=== PATIENT | male | born 1955 | race Caucasian/White ===

== ENCOUNTER 2018-11-08 14:43 | Inpatient (IN) | payer OTHER ==
[~2018-11-08] VITALS: Ht 182.9 cm; Wt 65.3 kg
--- NOTE | 2018-11-08 14:12 | NUR ---
PATIENT ARRIVED TO FLOOR, ACCOMPANIED BY DAUGHTER RONALD AND FAMILY MEMBER JILLIAN. HE HAS HIS OWN WALKER. CAME TO ROOM WITH FAMILY AND STAFF, VS TAKEN. DENIES ANY PAIN AT THIS TIME. LUNGS CLEAR, NO EDEMA, AND NO OPEN WOUNDS. DR. VILLAFANA ASSESSING CLIENT. HE PERFORMED A MEMORY TEST ON HIM. STATED HE NEEDED TO STAY AND THEN CLIENT GOT UPSET AND STATED HE NEEDED TO WORK AND HE CAN'T AFFORD TO STAY HERE. HE SAID HE IS GOING TO WALK OUT AND WE NEED TO GET A COURT ORDER TO STAY HERE. DAUGHTER RONALD STATED SHE ISN'T TAKING HIM HOME. HE SAID BITTERLY THANK YOU AND FOR ALL I DID FOR YOU, HE WAS FIGHTING WITH DAUGHTER STATING HE DOES STILL WORK, SHE STATED YOU HAVEN'T WORKED FOR 5 YEARS. HE DIDN'T KNOW SHE LAST YEAR, AND HE DENIED GETTING A DIVORCE IN JULY 2018. FAMILY STATED HE HAD A STROKE OCTOBER 14 THAT AFFECTED HIS RT PERIPHERAL VISION. 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 CAN WALK WITHOUT A WALKER. HE RETIRED FROM A LAW FIRM. HE STATED HE TALKED TO INSURANCE THIS AM. THIS NURSE ASKED QUESTIONS FOR ADMISSION AND HE WAS REDIRECTED EASILY.
[2018-11-08 14:24] VITALS: BP 112/60
[2018-11-08 16:25] LABS: ABSOLUTE NEUTROPHILS 9.4 thou/uL (1.4-8.2); BASOPHILS 0.7 % (0.0-2.0); EOSINOPHILS 0.1 % (0.0-3.0); HEMATOCRIT 42.8 % (42.0-52.0); HEMOGLOBIN 14.8 gm/dL (14.0-18.0); LYMPHOCYTES 13.7 % (24.0-44.0); MCH 31.7 pg (26.0-34.0); MCHC 34.6 g/dL (28.0-37.0); MCV 91.5 fL (80.0-100.0); MONOCYTES 7.4 % (1.0-8.0); PLATELET COUNT 324 thou/uL (150-400); POLYS 78.1 % (36.0-66.0); RBC 4.67 mil/uL (4.50-6.00); RDW 13.7 % (10.5-14.5); WBC 12.1 thou/uL (4.0-11.0)
[2018-11-08 16:40] LABS: ALBUMIN 3.7 g/dL (3.4-5.0); CALCIUM 8.9 mg/dL (8.5-10.1); CREATININE 0.9 mg/dL (0.7-1.3); POTASSIUM 3.8 mmol/L (3.5-5.1); TOTAL BILIRUBIN 0.5 mg/dL (<0.1-1.0); TOTAL PROTEIN 7.3 g/dL (6.4-8.2)
[2018-11-08 17:05] LABS: URINE BILIRUBIN NEGATIVE (Negative); URINE BLOOD TRACE (Negative); URINE CLARITY CLEAR; URINE COLOR YELLOW; URINE GLUCOSE-RANDOM* 3+ (Negative); URINE KETONES NEGATIVE (Negative); URINE LEUKOCYTES NEGATIVE (Negative); URINE NITRITE NEGATIVE (Negative); URINE PROTEIN (DIPSTICK) NEGATIVE (Negative); URINE SPECIFIC GRAVITY < 1.005 (1.005-1.035); URINE UROBILINOGEN 0.2 E.U./dl (0.2-1.0)
--- NOTE | 2018-11-08 17:20 | NUR ---
CALLED [facility] TO SEE IF THIS NURSE COULD GET REPORT. LEFT MESSAGE AND THE CLINICAL REHABILITATION LIAISON STATED SHE WOULD HAVE SOMEONE CALL BACK. GAVE NUMBER TO THIS UNIT TO CALL NURSE.
--- NOTE | 2018-11-08 18:28 | NUR ---
TALKING TO DAUGHTER RONALD ON PHONE ABOUT SOCKS, HEARING, AND HIS PHONE. HE IS WANTING TO KNOW IF WE GET NOTIFIED OF HEARINGS AND ITS AN INDIVIDUAL RIGHT TO KNOW WHEN HE HAS A HEARING, AND HE WANTED TO KNOW IF HE CAN GET [facility] OF HIS OFFICE. HE HAS BEEN RETIRED FOR 5 YEARS SINCE FIRST STROKE, HE DOESN'T BELIEVE HE HAS RETIRED.
--- NOTE | 2018-11-08 18:46 | NUR ---
PATIENT IS GOING TO TAKE A SHOWER. HE ATE WELL FOR DINNER.
[2018-11-08 19:42] VITALS: BP 124/59
--- NOTE | 2018-11-08 21:56 | NUR ---
ASSUMED CARE OF THE PATIENT AT 2000 PM. ALERT ET CONFUSED AT TIMES. WALKS WITH A SLIGHTLY UNSTEADY GAIT, HAS A WALKER TO USE. HE CAME OUT OF HIS ROOM, WITH SWEAT ON HIS FACE. THE CONTRACT ADMINISTRATIVE ASSISTANT CHECKED HIS BLOOD SUGAR AND IT WAS 54. ORANGE JUICE AND SNACKS WERE GIVEN TO THE PATIENT, WHILE STAFF STAYED WITH THE PATIENT. HIS BLOOD SUGAR WAS CHECKED 1/2 HOUR LATER AND IT WAS 133. HELD HIS LANTUS INSULIN TONIGHT AFTER SPEAKING WITH THE BLUE LINE TRIMMER, WHO IS POLYMERIZATION KETTLE OPERATOR TONIGHT. ASSISTED THE PATIENT BACK TO BED AND PUT ON THE BED ALARM.
--- NOTE | 2018-11-08 22:38 | H ---
[facility] [place] [address] HISTORY AND PHYSICAL Name: AMANDA BLAND Room #: 528B-A ADM IN M.R.#: [id number] Admission: 11/08/18 Attend Phys: Chavo Krueger DO Discharge: Date of : 51 Report #: [id number] THIS REPORT FOR: //name// CC: Chavo Krueger [facility] DATE OF SERVICE: 11/08/2018 SOURCE OF INFORMATION: Review of records, interview with patient, interview with his daughter and Jed CANDELARIO, as well as conversation and discussion with his half-way physician who referred him to [facility], Senior Behavioral [facility] Unit, Dr. Shan Rodriguez. CHIEF COMPLAINT: Agitation. HISTORY OF PRESENT ILLNESS: This is a 63-year-old male, , who is directly admitted to [facility] Unit at [facility] from the [facility] in [place]. The patient has been at that facility since 10/29/2018. Prior to that, he was at [facility] after he sustained a stroke. The reason for admission at this time is agitation, irritability, wanting to leave the fci facility, alleged refusal of medication at that nursing facility and being behaviorally unstable for placement in an assisted living at this time. According to notes from [facility], when he was admitted there on 10/18/2018, he had a history of uncontrolled diabetes mellitus, hyperlipidemia, hypertension and cerebrovascular accident from 2013. He had initially presented to the ED on 10/14/2018 with complaints of altered mental status. He called his family with confusion. He also demonstrated right visual changes and some right side tingling. CT head was negative. Carotid Doppler without acute findings. CTA of head revealed occlusion of the proximal left posterior cerebral artery. MRI with restricted diffusion of the left hippocampus and to a lesser extent left mesial temporal lobe and posterolateral thalamus. Differential considerations including seizures and hypoxic ischemic etiologies, microangiopathic ischemic disease. EEG was negative. LDL was elevated. He has uncontrolled diabetes mellitus and still smokes. He was admitted, followed by Neurology, started on DAPT and worked with various therapies plus a swallow evaluation. The patient was evaluated by Physical Medicine and Rehabilitation and deemed appropriate for inpatient rehab. The patient was admitted to [facility] rehab on 10/18/2018. Hospitalist service consulted for medical management. PAST MEDICAL HISTORY: Includes diabetes mellitus type 2, hyperlipidemia, hypertension, and asthma. PSYCHIATRIC HISTORY: Includes anxiety. He also has medical history of stroke. [address] [address] HISTORY AND PHYSICAL Name: AMANDA BLAND Room #: 528B-A ADM IN M.R.#: [id number] Admission: 11/08/18 Attend Phys: Chavo Krueger DO Discharge: Date of : 51 Report #: [id number] PAST SURGICAL HISTORY: He does have history of right hip fracture, not requiring surgical intervention. FAMILY HISTORY: Cancer in his mother, diabetes in his father, heart disease in his father. SOCIAL HISTORY: He smokes every day half pack per day, never used smokeless tobacco, denies alcohol. ALLERGIES: EGG MEMBRANE. MEDICATIONS: Prior to hospital admission include aspirin 81 mg daily, atorvastatin 40 mg daily, clopidogrel 75 mg daily, docusate 100 mg by mouth two times a day as needed. He is on 20 units of Lantus, 2-12 units of lispro with meals, losartan 25 mg daily, Effexor 50 mg daily. Physical examination at [facility] on 10/18/2018 with grossly normal. 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 His A1c at that time was 13.2. Fasting blood glucose in the hospital was 83. His LDL was 168, which is well higher. He was on a diet consistent carbohydrate 75 grams per day. Of note, when he was at [facility] rehab, Psychology was consulted and seen by Nayely Dela Cruz. Her diagnoses included major depressive disorder, recurrent; mild generalized anxiety disorder, mood disorder due to medical condition, CVA. Psychology met with him to focus on elevated mood, improving his stress management, worked to facilitate emotional adjustment to stroke and lifestyle changes. Psychology will emphasize tobacco cessation strategies to maintain cessation. There is a note here by Dr. Person of the [facility] PMR doctor that due to his memory issues, he will not discharge him into assisted living and it looks like the patient went to SNF instead. I have not found documentation yet as to why and things such as this. Medications at his nursing facility [facility] include aspirin 81 mg daily, Lipitor 40 mg a day, Plavix 75 mg daily, docusate, he is getting heparin 5000 units every 8 hours, Lantus 18 units daily. I am going to defer the need for heparin to Dr. Shan Rodriguez who will be attending him here. Segment ramos, he was getting Effexor 50 mg 2 times a day, trazodone 50 mg at night, nicotine patch. Also, noted was modafinil 200 mg oral daily. There were some OT and PT notes left for me, which I will further review. Interview with his daughters today include the following information from Jed, his DPLUIS FERNANDO. Apparently, he got in 07/2018. This is his second . They got in their late 30s. They had 2 daughters together. There is an older stepdaughter from his previous marriage. They frequently fought. She describes her father is a borderline narcissist, frequent anger. Apparently, family history, his father was an alcoholic. [facility] [address] [place] [address] HISTORY AND PHYSICAL Name: AMANDA BLAND Room #: 528B-A ADM IN M.R.#: [id number] Admission: 11/08/18 Attend Phys: Chavo Krueger DO Discharge: Date of : 51 Report #: [id number]. His mother was addicted to sleeping pills. Psychiatric history, she related the daughter had marriage counseling, diagnosed as MDD. Initial stroke 4-1/2 to 5 years ago, he had left side with recurrence of the stroke with right-sided weakness. 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 On examination, the patient today, initially he was in fair spirits. Then, later when I told him he could not leave the hospital, he became belligerent, cursing at me, making sexually suggestive comments and doing some mild exit seeking. The patient is aware he has some cognitive deficits. He does not believe his DPOA can be enacted and lines are thinking such as that. I performed the [facility] mental status examination, he scored a 16 out of 30. Gross deficits were delayed memory as well as other areas of cognition. Physical examination deferred to hospitalist. Laboratories were not available at the time I see him. I did order a CBC, CMP, TSH, urinalysis. I do not have a reason to believe he is drugging. MENTAL STATUS EXAMINATION: This is a well-developed, ill-appearing male appearing older than stated age. Attention impaired as he could only do reverse digit span of three digits. Concentration limited. Speech is normal rate and tone. Thought process is linear and goal directed. Thought content focused on leaving the hospital, not following medical advice. Some psychomotor agitation or psychomotor retardation. Denied auditory or visual or tactile hallucinations. Denies suicidal or homicidal plan or intent. Denied hopelessness or helplessness. Denied homicidal intent or plan. Memory formally tested and grossly impaired as described. Insight limited. Judgment limited. Fund of knowledge below average at this point. 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 Further diagnoses, major and cognitive disorder due to cerebrovascular disease with behavioral disturbance based on records from [facility], interview with patient and his DPOA. Additionally, unspecified, rule out major depressive disorder, rule out substance-induced mood disorder due to the modafinil, and antidepressants, tobacco use disorder as well. PLAN: Evaluate, stabilize, obtain collateral and enacting DPOA. I have asked Dr. Rodriguez as well to write a kathia and enacting it. Estimated length of stay 7-14 days. I had a long conversation with the daughter, Jed, including the likelihood of the dementia diagnosis, need for placement, need for memory care. For factor such as this, the patient will be a full code for the time being. Risks attendent with medications such as antipsychtics and mood stabilizers were discussed with DPOA including , stroke and falls in dementia patients. Jed is ok with their use to stabilizer her father. [facility] [address] [address] HISTORY AND PHYSICAL Name: AMANDA BLAND Room #: 528B-A ADM IN M.R.#: [id number] Admission: 11/08/18 Attend Phys: Chavo Krueger DO Discharge: Date of : 51 Report #: [id number] Time spent on interview, review of records, coordination of care is at least 60 minutes. <ELECTRONICALLY SIGNED> By: Chavo Krueger DO 11/08/18 2238 1917 01 Chavo Krueger DO /nt
--- NOTE | 2018-11-09 04:37 | NUR ---
THE PT HAS BEEN SLEEPING MOST OF THE NIGHT. RESP., EVEN, AND UNLABORED.
--- NOTE | 2018-11-09 05:53 | NUR ---
THE PATIENT SLEPT 9.2 HOURS LAST NIGHT.
[2018-11-09 07:27] VITALS: BP 144/70
--- NOTE | 2018-11-09 08:19 | EKG ---
[address] [place] [address] ELECTROCARDIOGRAM REPORT Name: AMANDA BLAND Room #: 528B-A ADM IN M.R.#: [id number] Admission: 11/08/18 Attend Phys: Chavo Krueger DO Discharge: Date of : 51 Report #: [id number] THIS REPORT FOR: //name// [facility] Test Date: 2018-11-09 Test Time: 07:10:00 Pat Name: AMANDA BLAND Department: Room: 52B A Gender: M Assistant Controller: SALVADOR : 1955 Requested By: Chavo Krueger Order Number: [id number] MD: Man Centeno Measurements Intervals [place] Rate: 71 P: 72 [place]: 138 QRS: 48 QRSD: 128 T: 53 QT: 431 QTc: 469 Interpretive Statements Sinus rhythm Right bundle branch block No previous ECG available for comparison Electronically Signed On 11-09-2018 8:18:57 PRODUCTION ILLUSTRATOR by Man Centeno [email or web address] <ELECTRONICALLY SIGNED> By: Man Centeno MD, [facility] 11/09/18 0818 0710 0710 Man Centeno MD, [facility] /EPI
[2018-11-09 11:39] VITALS: BP 144/78
--- NOTE | 2018-11-09 15:43 | NUR ---
STAN left a voicemail for Torsten to return the call concerning scheduling a family meeting. STAN provided contact information.
--- NOTE | 2018-11-09 17:11 | NUR ---
PT. IN BED THIS MORNING, COOPERATIVE WITH STAFF WITH BLOOD SUGARS, MEDS, ECG. HAS BEEN ON THE UNIT MOST OF THE DAY INTERACTING WITH STAFF. HE IS NOT RETAINING INFORMATION AND WILL REPEAT THE SAME INFORMATION OVER AND OVER AGAIN. HIS BLOOD SUGARS HAVE BEEN 264 AT 0700, 272 AT 1100, 195 AT 1200, AND 127 AT 0600. HE RECEIVED LANTUS 10 U STAT THIS A.M. PER D.O. HIS OLDEST DAUGHTER VISITED (STEP DAUGHTER) THIS EVENING. HIS MOOD HAS BEEN NEUTRAL, AFFECT A BIT ANIMATED THIS AFTERNOON, FLAT THIS MORNING. DID ATTEND GROUPS TODAY AND PARTICIPATE.
[2018-11-09 19:36] VITALS: BP 136/67
--- NOTE | 2018-11-09 22:19 | NUR ---
PT REQUESTING DOCUMENTS ON WHY HE IS HERE AT HOSPITAL. BECAME QUITE AGITATED WHEN TOLD HE NEEDED TO SEE MD IN THE AM. CONSTANTLY HANGING AROUND NURSES STATION PESTERING ABOUT WANTING HIS CLOTHES AND WANTING TO GO HOME. CONTINUED TO ATTEMPT REDIRECTION AND DEFUSING SITUATION. WANTING ATTENTION AND VERY CONFUSED.
[2018-11-10 02:12] VITALS: BP 136/67
[2018-11-10 02:30] VITALS: BP 136/67
--- NOTE | 2018-11-10 03:54 | NUR ---
Showered and donned clean clothes, would not allow dirty clothes to be washed. Forgetful and repeated request for having his chart and talking to his Dr. Assured that he would see his Dr. in the a.m. Laid down at 23:30, has experienced regular breathing and eyes closed since retiring.
--- NOTE | 2018-11-10 06:04 | NUR ---
HS FSBS 211, 10 U of Glargine provided. Once asleep, slept soundly, respirations even and unlabored. Slept for 7hours. A.M. FSBS 170, 7 Units of Lispro given.
[2018-11-10 11:09] VITALS: BP 130/61
--- NOTE | 2018-11-10 11:59 | NUR ---
ASSUMED PATIENT CARE AT 0700 A.M. PATIENT STILL IN BED AT THAT TIME; HOWEVER, DID GET UP OUT OR BED AT 0715. STAYED IN DR UNTIL AFTER BREAKFAST. COMPLIANT WITH A.M. MEDICATIONS. PATIENT IS FORGETFUL; REPEATS SAME QUESTION A MINUTE AFTER QUESTION IS ANSWERED. BS 292 AT 11:30; RECEIVED SCHEDULED LISPRO 7 UNITS PRIOR TO NOON MEAL. GOOD APPETITE; AFFECT PLEASANT, BEHAVIOR COOPERATIVE; CALM MOOD TO DATE THIS SHIFT. SON AND DAUGHTER VISITED FOR THE AM VISITING HOURS. CONTINUE TO MONITOR.
[2018-11-10 19:23] VITALS: BP 138/72
--- NOTE | 2018-11-10 20:05 | NUR ---
[place] ACTIVATED FOR NEW CHEST PAIN. ON ARRIVAL, PT FLAILING AROUND AND WOULD NOT COOPERATE ENOUGHT TO OBTAIN AN ACCURATE EKG. MULTIPLE ATTEMPTS MADE TO ASSIST PT IN RELAXING BUT FAILED. MEDS DERMATOLOGY TECHNICIAN PER EMAR TO HELP PT RELAX AND AFTER APPROXIMATELY 35 MINUTES, ABLE TO OBTAIN EKG AND LAB DRAW. RESULTS NEGATIVE AND COMMUNICATED TO . PT CURRENTLY RESTING IN BED. UPDATE GIVEN TO MADYSON.
--- NOTE | 2018-11-10 20:17 | NUR ---
AT 1899, PATIENT CAME TO NURSE AND STATED THAT HE WANTED TO CALL HIS TRANSIT BUS DRIVER. NURSE NEEDED HIS PHONE NUMBER, TO WHICH PATIENT REPLIED "IT'S ON MY CELL PHONE." CELL PHONE LOCKED UP IN PATIENT LOCKER. ABOUT 1914, WHILE SITTING IN THE LARGE GROUP ROOM, PATIENT C/O TO NA THAT HE WAS HAVING PRESSURE IN THE MIDDLE OF HIS CHEST. VSS; BP 138/78, R22, HR 105--SLIGHTLY TACHY AT THAT TIME. PATIENT'S PAIN DID NOT IMPROVE, APPEARED THAT IT WAS GETTING WORSE. NURSE CALLED FOR RAPID RESPONSE, WHICH WAS NOT ANSWERED FOR 3 PAGES LATER (15 MINUTES). RN, MARGOT, REPORTED THAT SHE JUST GOT THE PAGE ABOUT 1929. NURSE HAD RECEIVED ORDER FOR STAT EKG, WHO RESPONDED IMMEDIATELY. HOWEVER, COULD NOT OBTAIN EKG FOR OVER 1/2 HOUR, R/T PATIENT'S ANXIETY AND REFUSING TO HOLD STILL. NURSE ALSO HAD ADMINISTERED ZYPREXA 5 MG IM ABOUT 1929. EKG STRIP REVEALED SINUS TACHYCARDIA. NO FURTHER ORDERS AT THIS TIME. CONTINUE TO MONITOR. REPORT GIVEN TO ON-COMING NIGHT NURSE.
--- NOTE | 2018-11-11 00:18 | NUR ---
ASSUMED CARE OF THE PATIENT AT 1999 PM. THE PATIENT IS SLEEPING AT THIS TIME, HE TOOK HIS MEDICATIONS WITHOUT ANY DIFFICULTY. HELD HIS INSULIN, HIS BLOOD SUGAR WAS ONLY 194 AND HE DID NOT EAT A SNACK THIS PM, WHICH WAS OFFERED TO HIM. THE PATIENT SUPPORT ASSISTANT LOOKED AT THE PATIENT'S EKG, WHICH SHOWED SINUS TACH AND HIS TROPININ WAS WITHIN NORMAL RANGE. WILL CONTINUE TO CHECK ON THE PATIENT.
--- NOTE | 2018-11-11 05:15 | NUR ---
THE PATIENT SLEPT 9.2 HOURS LAST NIGHT.
[2018-11-11 07:47] VITALS: BP 137/68
--- NOTE | 2018-11-11 08:03 | EKG ---
[place] [address] [address] [place] [address] ELECTROCARDIOGRAM REPORT Name: AMANDA BLAND Room #: 528B-A ADM IN M.R.#: [id number] Admission: 11/08/18 Attend Phys: Chavo Krueger DO Discharge: Date of : 51 Report #: [id number] THIS REPORT FOR: //name// [facility] Test Date: 2018-11-10 Test Time: 20:03:57 Pat Name: AMANDA BLAND Department: Room: 528B A Gender: M Blow Machine Tender Starch Spraying: Paula MORELAND : 1955 Requested By: Chavo Krueger Order Number: [id number] MD: Man Centeno Measurements Intervals [place] Rate: 101 P: 95 [place]: 129 QRS: 83 QRSD: 126 T: 68 QT: 376 QTc: 488 Interpretive Statements Sinus tachycardia Right bundle branch block Artifact in lead(s) II,III,aVR,aVL,aVF,V3 Compared to ECG 11/09/2018 07:10:00 No significant change was found Electronically Signed On 11-11-2018 8:03:20 BICYCLE RACER by Man Centeno [email or web address] <ELECTRONICALLY SIGNED> By: Man Centeno MD, [facility] 11/11/18 0803 02 02 Man Centeno MD, [facility] /EPI
--- NOTE | 2018-11-11 12:01 | NUR ---
ASSUMED PATIENT CARE AT 0700. RECEIVED REPORT FROM [facility] NURSE THAT PATIENT HAD A RESTFUL NIGHT,9.2 HOURS OF SLEEP. BP 137/68, HR 74.R18 THIS A.M. CALM BEHAVIOR, COOPERATIVE MOOD, NO BEHAVIOR ISSUES TO DATE. ATE BREAKFAST, SAT AT TABLE WITH ANOTHER RESIDENT. SEEN BY DR. MUÑOZ, NEW ORDER FOR CHEST X-RAY R/T FOLLOW-UP FROM YESYTERDAY EVENING'S EVENT. PATIENT COMPLIANT WITH MEDICATIONS. CONTINUE TO MONITOR.
--- NOTE | 2018-11-11 16:52 | NUR ---
STAN conducted a family therapy session with Dr. Krueger, Matt Antoine, and Torsten on the telephone. Dr. krueger mention that pt has Major Neurocognitive Disorder. Dr. Krueger recommended that pt be referred to a memory care unit. SW stated that she can assist with referral. Sw recommended pt to [facility]. STAN completed the psychosocial assessment. SW will folow-up with pt upon discharge.
[2018-11-11 19:21] VITALS: BP 133/60
--- NOTE | 2018-11-11 20:04 | NUR ---
ASSUMED CARE OF PATIENT AT 1900. IN DAY ROOM WATCHING TV. CALM AND COOPERATIVE. REPORTS THAT HE IS "SETTLED IN AFTER TALKING TO HIS DR." 133/60 89 17 97% 97.9F. HEART RATE REGULAR S1S2 NOTED LUNGS SOUNDS CLEAR TO AUSCULTATION. ABDOMINAL SOUNDS NORMOACTIVE. COULD NOT REPORT HAVING A BM TODAY. WRIST AND PEDAL PULSES NOTED. NO SWELLING IN LOWER EXTREMITIES. FSBS 235 @ 19:35.
[2018-11-11 22:40] VITALS: BP 133/60
--- NOTE | 2018-11-12 03:45 | NUR ---
IN BED, EYES CLOSED, RESPIRATIONS EVEN AND UNLABORED. HAS NOT COME OUT OF ROOM SINCE RETIRING. AT HS QUESTIONED WHAT KIND OF PLACE THIS IS, WHETHER PRISION OR HOSPITAL. ASSURED THAT THIS IS A HOSPITAL AND THAT HE IS RECOVERING FROM PROBLEMS WITH THE STROKE HE HAD EARLY IN OCTOBER OF THIS YEAR.
--- NOTE | 2018-11-12 05:57 | NUR ---
SLEPT WELL AFTER GOING TO SLEEP AT 2300. SLEPT 7 HOURS. RESPIRATIONS EVEN AND UNLABORED.
--- NOTE | 2018-11-12 06:24 | NUR ---
FSBS 208 @ 06:15, 7u OF INSULIN LISPRO GIVEN @ 06:25.
[2018-11-12 08:32] VITALS: BP 129/70
--- NOTE | 2018-11-12 09:08 | NUR ---
PATIENT UP AND ENGAGING. ENJOYED BREAKFAST AND COMPLETED 100% - PATIENT STATED FEELING BETTER. NO THOUGHTS OF S/I - RATED DEPRESSION/ANXIETY 5/10. PARTICIPATED IN GROUPS AND STATD MEASURABLE GOALS WHEN QUESTIONED. MEDICATION COMPLIANT. STATED NICOTENE PATCH HELPS WITH CRAVINGS. AFFECT BRIGHT AND MOOD POSITIVE. RESPONSIVE TO QEUSTIONS AND SOCIAL WITH PEERS AND STAFF.
[2018-11-12 19:31] VITALS: BP 109/63
--- NOTE | 2018-11-12 20:07 | NUR ---
ASSUMED CARE OF PATIENT @ 19:15. SITTING AT A TABLE AND CHAIR IN THE DAY ROOM WATCHING TV. ALERT AND ORIENTED X3. PLEASANT AFFECT NOTED. HEART RRR, LUNGS CTA. ABD SOUNDS NORMOACTIVE, SOFT AND FLAT, REPORTS BM JUST A FEW MINUTES AGO. STATES CONCERN OF WANTING TO TALK TO A FRIEND WHO IS A MOLDER MACHINE TENDER. WE HAVE HIS PHONE NUMBER AT HIS OFFICE IN [facility] AND HE CAN BE CALLED DURING BUSINESS HOURS ON THURSDAY. PATIENT ADVISED OF SAME.
--- NOTE | 2018-11-12 22:08 | NUR ---
COMPLIANT WITH MEDICATION. FSBS 315, 12 UNITS OFINSULIN GLARGINE PROVIDED PER NEW ORDER. ENCOURAGED TO LIMIT SWEETS AND SIMPLE CARBS D/T HIGH BLOOD SUGAR, HE AGREED TO MILK, PEANUT BUTTER X2 AND GRAHM CRACKER X1. OBSERVED TO HAVE A SMILE AND PLEASANT COUNTENANCE, COOPERATIVE WITH STAFF AND SOCIAL WITH OTHER PATIENTS AND STAFF.
[2018-11-13 00:30] VITALS: BP 109/63
[2018-11-13 00:50] VITALS: BP 109/63
--- NOTE | 2018-11-13 05:16 | NUR ---
IN BED, EYES CLOSED, RESPIRATIONS EVEN AND UNLABORED. OF 05:30, HAS SLEPT 6 1/2 HOURS.
[2018-11-13 07:12] VITALS: BP 102/54
--- NOTE | 2018-11-13 07:30 | NUR ---
CLIENT UP THIS AM LYING IN BED. DENIES ANY PAIN. WANTING TO KNOW WHAT DAY IT WAS, VS TAKEN SITTING AND STANDING OBTAINED. USES WALKER OCCASIONALLY. STEADY ON FEET. STATED HE WAS HUNGRY THIS AM. LUNGS CLEAR.
[2018-11-13 07:45] VITALS: BP 115/64
[2018-11-13 11:32] VITALS: BP 115/64
--- NOTE | 2018-11-13 14:46 | NUR ---
TALKING WITH OTHER CLIENTS AT THIS TIME IN DINNING ROOM.
--- NOTE | 2018-11-13 17:21 | NUR ---
DAUGHTER CAME TO VISIT CLIENT. VISIT WENT GOOD, CLIENT CALM.
[2018-11-13 19:48] VITALS: BP 106/61
--- NOTE | 2018-11-14 00:56 | NUR ---
ASSUMED CARE OF THE PATIENT AT 2000 PM. TALKING WITH ANOTHER PATIENT WHEN THIS DRY PRESS OPERATOR CAME ON DUTY, HE IS SITTING IN A CHAIR, WHILE THIS NURSE CAME ON DUTY. TOOK HIS MEDICATIONS WITHOUT DIFFICULTY. DENIES ANXIETY, DEPRESSION, A/V HALLUNICATIONS, SI AND HI. TOOK A SHOWER THIS PM, BECAME AGITATED LATER IN THE EVENING BECAUSE HE WANTED HIS CELLPHONE AND IT WAS EXPLAINED TO THE PATIENT THAT HE COULD NOT HAVE IT WHILE HE IS HERE ON THIS UNIT. HE ATE A SNACK AND THEN WENT TO BED. WILL CONTINUE TO MONITOR EVERY 12 MINUTES PER PATIENT PROTOCOL.
--- NOTE | 2018-11-14 03:57 | NUR ---
THE PATIENT HAS BEEN SLEEPING DURING THE TAILINGS WORKER. RESP. EVEN, AND UNLABORED.
--- NOTE | 2018-11-14 06:01 | NUR ---
THE PATIENT SLEPT 6 HOURS LAST NIGHT.
[2018-11-14 07:52] VITALS: BP 131/68
--- NOTE | 2018-11-14 08:22 | NUR ---
PATIENT IN DINNING ROOM FOR BREAKAST. STATED HE IS VERY HUNGRY THIS AM AND DON'T KNOW WHY. NO GOALS TODAY, JUST TO GO HOME. LUNGS CLEAR, ROOM AIR. DENIES ANY PAIN. STATED HE STILL HAS SOME NUMBNESS TO RT FOOT AND STIFFNESS TO RT HAND. UP WITH WALKER IN AM AND USES OCCASIONALLY DURING THE DAY.
--- NOTE | 2018-11-14 13:00 | NUR ---
PATIENT PARTICIPATING IN GROUP AT THIS TIME.
[2018-11-14 13:16] VITALS: BP 131/68
--- NOTE | 2018-11-14 14:45 | NUR ---
PATIENT WITH DAUGHTER AND REHAB FACILITY SOCIAL WORKERS FROM [facility].
--- NOTE | 2018-11-14 16:20 | NUR ---
Pt met with Nelly from [place] at [place]. Jackie spoke with Ngozi who confirmed Pt can be admitted into their facilit upon discharge. Ngozi also stated their office will be incontact with SW on paperwork needed for admission.
--- NOTE | 2018-11-14 17:00 | NUR ---
CLIENT OUT EATING DINNER. TOOK OFF NICOTINE PATCH TO RT SHOULDER. D/C MED.
[2018-11-14 18:06] VITALS: BP 109/57; BP 127/50
[2018-11-14 19:58] VITALS: BP 101/50
--- NOTE | 2018-11-14 23:26 | NUR ---
ASSUMED CARE OF THE PATIENT AT 1999 PM. ALERT ET ORIENTED X 3. MAKES NEEDS KNOWN. TOOK HIS MEDICATIONS WITHOUT ANY DIFFICULTY, HE TOOK A SHOWER THIS PM. DENIES SI/HI, DEPRESSION, ANXIETY, AND A/V HALLUNICATIONS. TOOK HIS INSULIN WITHOUT DIFFICULTY. WALKS WITH A STEADY GAIT.
--- NOTE | 2018-11-15 04:23 | NUR ---
THE PATIENT HAS BEEN SLEEPING MOST OF THE NIGHT. DENIED PAIN EARLIER IN THE SHIFT.
[2018-11-15 07:20] VITALS: BP 92/52
--- NOTE | 2018-11-15 13:40 | NUR ---
RN indicating pt eating 100% of meals, still hungry. BG have been poorly controlled most recently in 200-300s. Can add extra nonstarchy vegetables and sugar free jello to trays. Low nutrition risk
--- NOTE | 2018-11-15 15:15 | NUR ---
STAN sent a referral to [facility] concerning the pt potentially been accepted into there memory care unit. STAN will follow-up with the facility.
--- NOTE | 2018-11-15 15:37 | NUR ---
RECREATIONAL THERAPY PROGRESS NOTE Date of Admission: 11/08/18 Date of Activity Therapy Assessment: 11/09/18 Activity Goal: 2 groups per day Initial Goal: Increase/maintain leisure awareness Weekly progress towards goal: On track Group participation level: Full Behaviors observed: Pt is actively engaged in groups. He does better with groups involving cognitive stimulation and social skills. Pt often steps up as a leader of the group. Plan: No change towards goal
--- NOTE | 2018-11-15 19:29 | NUR ---
ASSUMED PT CARE AT 0700H. PT HAS NO S/S OF DISTRESS. PT STATES NO IDEATION OF SELF HARM NOR OTHERS. PT ALERT BUT FORGETFUL. PT COMMUNICATES APPRIATELY. PT HAS BEING PARTICIPATING IN GROUP. PT TOLERATED MEDS AND MEALS. PT AMBULATES HALLWAY, BPR AND DAY ROOM WITH WALKER. PT PLANS TO BE DC EARLIEST TOMORROW. PT CURRENTLY IN DAY ROOM INTERATING APPROPRIATLY WITH PEERS AND WATCHING TV IN DAY ROOM. PT CONT TO BE MONITORED Q 12SMINS FOR SAFETY.
[2018-11-15 19:41] VITALS: BP 154/62
--- NOTE | 2018-11-15 22:05 | NUR ---
ASSUMED PT CARE 1900. PT ALERT AND ORIENTED. PT IN ACTIVITY ROOM WATCHING TV. PT CALM AND COOPERATIVE. PT MADE PHONE CALL TO [facility] LASTED APPROXIMATELY 30 MINUTES. REASSESSMENT COMPLETED. VSS. WILL CONTINUE POC UNTIL EOS.
[2018-11-16 07:29] VITALS: BP 125/56
[2018-11-16 11:10] VITALS: BP 122/56
--- NOTE | 2018-11-16 11:19 | NUR ---
ASSUMED PATIENT CARE AT 0700. PATIENT IN BED AT THAT TIME. CAME TO DR FOR BREAKFAST, ATE 100% OF MEAL. REMAINED IN DR/GROUP ROOM, PARTICIPATED IN A.M. R.T. OBSERVED DROWSY TODAY, RESPONDS APPROPITELY TO CONVERSATION. COMPLIANT WITH A.M. MEDICTIONS. CLOPIDROGEL NOT LOADED IN PYXIS; PHARMACY FILLING AT THIS TIME (11;20 A.M.) CONTINUE TO MONITOR.
[2018-11-16 19:32] VITALS: BP 158/72
[2018-11-16 23:30] VITALS: BP 158/72
--- NOTE | 2018-11-17 03:03 | NUR ---
PT QUIET THIS EVENING. WATCHING TV AND INTERACTING WITH STAFF AND PEERS. TOOK HS MEDS W/O PROBLEM AND HEADED FOR BED AT 2230. SLEPT WELL THROUGH THE NIGHT. GOAL FOR TOMORROW, HOPES TO GET OUT OF HERE. AFFECT FLAT BUT RESPONSIVE TO INTERACTIONS WITH STAFF. DENIES SI. NO OUTBURSTS THIS EVENING. GENERALLY CORDIAL AND COOPERATIVE.
[2018-11-17 07:00] VITALS: BP 136/57
[2018-11-17 09:51] VITALS: BP 158/72
--- NOTE | 2018-11-17 17:08 | NUR ---
SW attempted to have pt participate in group. Pt stated that he wanted to rest today due to him not feeling well.
--- NOTE | 2018-11-17 18:30 | NUR ---
ASSUMED CARE AT 0715 THIS MORNING. PT. UP OUT OF BED ON THE UNIT DISHEAVELED LOOKING. REFUSED SHOWER AND GROOMING TODAY. BOTH THIS NURSE AND SPOKE WITH PT. ABOUT THIS. HE JUST SMILED BUT DID NOT GO TO HIS ROOM TO SHOWER OR GROOM. HE APPEARED DEPRESSED TODAY EVIDENCED BY SULLEN FACE, QUIET DISMEANOR, DISHEAVELED APPEARANCE. PT. IS USUALLY OUTGOING, BUT SAT BY HIMSELF MOST OF TODAY. DENIES SI/HI/AVH. TOOK ALL MEDICATIONS WITHOUT PROBLEMS.
[2018-11-17 20:30] VITALS: BP 131/66
--- NOTE | 2018-11-17 23:53 | NUR ---
PT RESTING AT START OF SHIFT, WOKE UP, AMBULATED IN THE DINING ROOM, C/O HUNGRY, HS SNACK GIVEN, HS MEDS GIVEN WITH NO DIFFICULTY, BLOOD SUGAR OBTAINED, TREATED ORDERED, MAIN COMPLAINT IS SOME EDEMA TO BOTH FEET, ENC. TO CONTINUE TO ELEVATE THEM WHILE IN CHAIR OR WHILE IN BED, PT AGITATED OVER HIS FEET, INFORMED HIM WILL HAVE THE DOCTOR KNOW IN AM, GIVEN EXTRA DOSE OF ZYPREXIA PRN AGITATION, FOOT OF BED ELEVATED, MONITORED.
[2018-11-18 07:29] VITALS: BP 129/63
--- NOTE | 2018-11-18 09:41 | NUR ---
PATIENT UP AND AGREEABLE THIS MORNING. UP ADLIB, AFFECT PLEASANT AND MOOD POSITIVE. GOOD APPETITE - ATE BREAKFAST. BLOOD SUGAR 221 IN AM - TOLERATEC MEDICATIONS AND INSULIN ADMINISTRATION WELL. AMBULATORY. EAGER TO LEAVE - WAS ABLE TO TELL STAFF WHAT FACILITY RESIDING AT. STATED READY TO LEAVE - HAS BECOME VERY BORING HERE. DENIED ANY S/I OR H/I - CLAIMS DEPRESSION AND ANXIETY HAS IMPROVED. TOOK SHOWER AND HANDLED OWN ADL'S. EDEMA IN LOWER EXTREMITIES HAS IMPROVED - ELEVATION HELPED SWELLING SUBSIDE LAST EVENING.
--- NOTE | 2018-11-18 09:45 | NUR ---
STAN spoke with Lela at [facility], and [facility] will be picking him up at 11:00 am to transport him to facility.
--- NOTE | 2018-11-18 10:01 | NUR ---
Patient Name: AMANDA BLAND Admission Date: 11/08/18 DISCHARGE PLAN: Pt will discharge to nursing facility that ave a memory care unti. Care Assessment: Pt was examined by Dr. Krueger that mention pt has Major neurocognitive disorder that causes behavior disturbance. Level II Assessment: None Transportation: Pt will be transported by [facility]. Special Instructions/Notes: Pt will need to be in a memory care unit. DISCHARGE TO FACILITY: Memory Care unit Facility: [facility] Fax: Address: [address] [id number] Contact Name: Lela PCP: Facility PCP Psychiatrist: Facility Psychiatrist
[2018-11-18 10:32] VITALS: BP 129/63
[2018-11-18] MEDS ORDERED: CLOPIDOGREL75 MG PO (10:48)
[2018-11-18] MEDS ORDERED: ATORVASTATIN CA40 MG PO (10:49)
[2018-11-18] MEDS ORDERED: ASPIR 8181 MG PO (10:50)
[2018-11-18] MEDS ORDERED: COZAAR 25 MG TA25 M1 PO (10:50)
[2018-11-18] MEDS ORDERED: OLANZAPINE10 M2 IM (10:51)
[2018-11-18] MEDS ORDERED: ZYPREXA 5 MG TAB5 M1 PO (10:53)
[2018-11-18] MEDS ORDERED: SENNA PLUS TAB1 EACH PO (10:53)
[2018-11-18] MEDS ORDERED: NOVOLOG100 UNIT/1 SUBQ (10:54)
[2018-11-18] MEDS ORDERED: GLUCAGEN1 MG/1 ML IM (10:54)
[2018-11-18] MEDS ORDERED: LANTUS100 UNIT/M SUBQ (10:54)
--- NOTE | 2018-11-18 11:34 | NUR ---
PATIENT AMANDA BLAND LEFT AT 11:15 VIA [facility] TRAN[facility] TO [facility].PATIENT ALERT AND ORIENTED AND HAPPY TO BE DISCHARGED. AFFECT BRIGHT AND MOOD POSITIVE ABOUT FACILITY HE WILL BE RESIDING AT - DISCHARGE INSTRUCTIONS REVIEWED WITH PATIENT - CALLED FACILITY AND SPOKE TO VIPIN - REVIEWED MEDICATIONS WITH HER AND PATIENT STATUS. PATIENT PROPERTY DOCUMENTATION COVERED WITH PATIENT AND SIGNED. BELONGINGS WERE SENT WITH TRANSPORTER AND PATIENT TO FACILITY.
--- NOTE | 2018-11-19 08:54 | D ---
[facility] [place] [address] DISCHARGE SUMMARY Name: AMANDA BLAND Room #: 522B-B DIS IN M.R.#: [id number] Admission: 11/08/18 Attend Phys: Chavo Krueger DO Discharge: 11/18/18 Date of : 51 Report #: [id number] THIS REPORT FOR: //name// CC: Chavo Krueger [facility] unknown DATE OF SERVICE: 11/18/2018 ATTENDING PHYSICIAN: Chavo Krueger DO PAPER GRADER: Shan Rodriguez MD DISCHARGE PLAN: [facility] Memory Care facility. DIET: Regular. ACTIVITY LEVEL: As tolerated. The patient will need 24/7 supervision and assistance due to his major neurocognitive disorder. DISCHARGE DIAGNOSES: Major neurocognitive disorder likely due to cerebrovascular disease with behavioral disturbance, improved. COMORBIDITIES: Include insulin-dependent diabetes, hypertension, cerebrovascular accident, hyperlipidemia. DISCHARGE MEDICATIONS: Plavix 75 mg p.o. daily for stroke prevention, atorvastatin 40 mg p.o. at bedtime for hyperlipidemia, aspirin 81 mg chewable daily for cardioprotection, olanzapine 5 mg oral twice a day for mood stabilization, 5 mg IM q.6 hours p.r.n. for severe agitation or refusal of p.o.; senna D 1 tab p.o. at bedtime for motility constipation, Lantus 15 units subQ b.i.d., insulin 13 units subQ before meals, glucagon 1 mg p.r.n. for hypoglycemia. I have recommended to him to have primary care followup as well as psychiatry followup in one week's duration to be provided at the [facility]. REASON FOR ADMISSION: Agitation, noncompliance at rehab facility. HOSPITAL COURSE: The patient was admitted to Geriatric Psychiatry Unit. His [facility] Mental Status examination score was found to be 14/30. The patient was a bit irritable the first day, then he acquiesced, participated well in activities. DPOA was enacted. I have doubts whether his low level of function will substantially improve in a year's time. Blood sugars this admission were a bit labile with sugars in the day so far being 221 in the morning, 231 before lunch. Other laboratories this admission include TSH 1.583, albumin 3.7, total protein 7.3, troponin less than 0.06, alkaline phosphatase [address] [address] DISCHARGE SUMMARY Name: AMANDA BLAND Room #: 522B-B DIS IN M.R.#: [id number] Admission: 11/08/18 Attend Phys: Chavo Krueger DO Discharge: 11/18/18 Date of : 51 Report #: [id number] 108. I do not think we did a hemoglobin A1c. His electrolytes remained normal. Hematology this admission, white count 12.1, lymphocytes low at 13.7, segmented neutrophils 78.1, absolute neutrophils count high at 9.4. No imaging this admission. There was an EKG done for chest pain as well as antipsychotic monitoring on that showed QTc 469, MD interval 138, QT interval of 71 with a right bundle branch block and sinus rhythm. I thought he had another one done for rapid response, but he turned out to have no acute cardiovascular process going on in the rapid response for chest pain. Vital on the day of admission, temperature 36.7, pulse 65, BP 129/63, on room air. Denied pain. Musculoskeletal, normal gait and station. MENTAL STATUS EXAMINATION: This is a well-developed, thin male, appearing his stated age. Attention limited, concentration limited. Speech is normal rate. Thought process is linear and goal directed. Thought content, focused on discharge. No psychomotor agitation, no psychomotor retardation. No auditory, visual or tactile hallucinations. Denied suicidal intent or plan. Denied hopelessness, denied helplessness. Denied homicidal intent or plan. Memory known to be impaired. Insight fair on discharge. Judgment fair. Fund of knowledge, no greater than average. Prognosis for this patient is guarded given the major neurocognitive disorder, need for memory care placement, suboptimally controlled diabetes mellitus. <ELECTRONICALLY SIGNED> By: Chavo Krueger DO 11/19/18 [id number] Chavo Krueger DO /nt
[2018-11-22 09:00] LABS: T-SPOT.TB Negative
== END 2018-11-18 13:00 | DRG 884 ==
LOC: SBH 14:43 → EDBD 14:57 → SBH 14:58
PROVIDERS: ADMIT Psychiatry & Neurology Psychiatry
DX: F01.51 Vascular dementia, unspecified severity, with behavioral disturbance (principal); E11.9 Type 2 diabetes mellitus without complications; E78.5 Hyperlipidemia, unspecified; I10 Essential (primary) hypertension; J45.909 Unspecified asthma, uncomplicated; Z86.73 Personal history of transient ischemic attack (TIA), and cerebral infarction without residual deficits; Z87.81 Personal history of (healed) traumatic fracture; Z91.012 Allergy to eggs; Z83.3 Family history of diabetes mellitus; Z82.49 Family history of ischemic heart disease and other diseases of the circulatory system; Z79.82 Long term (current) use of aspirin; Z79.899 Other long term (current) drug therapy; Z79.4 Long term (current) use of insulin
CPT/HCPCS: 10880